=== PATIENT | female | born 1970 | race Two or more races ===

== ENCOUNTER 2023-03-07 02:40 | Emergency (ER) | payer OTHER ==
[~2023-03-07] VITALS: Ht 157.5 cm; Wt 64.4 kg
[2023-03-07] MEDS ORDERED: NORFLEX100MG PO (05:48)
[2023-03-07] MEDS ORDERED: KETO10TA2 PO (05:48)
== END 2023-03-07 06:34 | disposition home or self-care (01) ==
LOC: ER 02:40
DX: M54.50 Low back pain, unspecified (principal)

== ENCOUNTER 2023-03-10 11:51 | Emergency (ER) | payer OTHER ==
[~2023-03-10] VITALS: Ht 157.5 cm; Wt 63.5 kg
[~2023-03-10 11:51] MED LIST: KETO10TA2 PO; NORFLEX100MG PO
[2023-03-10] MEDS ORDERED: MEDROLPACK PO (15:08)
== END 2023-03-10 15:29 | disposition home or self-care (01) ==
LOC: ER 11:52
DX: M54.50 Low back pain, unspecified (principal)